=== PATIENT | male | born 1980 | race Caucasian/White ===

== ENCOUNTER 2017-01-04 22:16 | Emergency (ER) | payer OTHER ==
[~2017-01-04] VITALS: Ht 175.3 cm; Wt 76.3 kg
[~2017-01-04 22:16] MED LIST: ADVIL200 M1 PO; AMOXICILLIN500 MG PO; CLINDAMYCIN HC300 MG PO; DOXYCYCLINE HY100 M3 PO; FLEXERIL10 MG; FLEXERIL5 MG PO; INDOCIN25 MG PO; MOBIC15 MG PO; MOTRIN600 MG; MOTRIN600 MG PO; MOTRIN800 MG PO; NAPROSYN500 MG PO; NAPROXEN500 MG PO; NO HOME MEDS; NO HOME MEDS.; NOHOMEMEDS; NORCO 5/3251 TABLET PO; PEN-VEE K,VEET500 MG PO; TRAMADOL HCL50 MG PO; VALIUM5 MG PO
[2017-01-04] MEDS ORDERED: ROBITUSSIN AC,T10 ML PO (23:27)
[2017-01-04] MEDS ORDERED: NICODERM CQ1 EACH TD (23:28)
[2017-01-04 23:39] VITALS: BP 128/60
== END 2017-01-04 23:39 | disposition home or self-care (01) ==
LOC: EME 22:16 → EXP 22:16
DX: J06.9 Acute upper respiratory infection, unspecified (principal); F17.200 Nicotine dependence, unspecified, uncomplicated; Z71.6 Tobacco abuse counseling
CPT/HCPCS: 99281; 99284

== ENCOUNTER 2017-01-13 17:46 | Emergency (ER) | payer OTHER ==
[~2017-01-13] VITALS: Ht 175.3 cm; Wt 75.7 kg
[~2017-01-13 17:46] MED LIST changes: +NICODERM CQ1 EACH TD; +ROBITUSSIN AC,T10 ML PO
[2017-01-13] MEDS ORDERED: NORCO 5/3251 TABLET PO (19:41)
[2017-01-13] MEDS ORDERED: MOBIC15 MG PO (19:41)
[2017-01-13 20:25] VITALS: BP 141/59
== END 2017-01-13 20:26 | disposition home or self-care (01) ==
LOC: EXP 17:46 → EME 17:46 → EXP 20:26
DX: S90.31XA Contusion of right foot, initial encounter (principal); W22.8XXA Striking against or struck by other objects, initial encounter; Y92.69 Other specified industrial and construction area as the place of occurrence of the external cause; Y99.0 Civilian activity done for income or pay; Z72.0 Tobacco use
CPT/HCPCS: 73630; 99281; 99283

== ENCOUNTER 2017-04-19 22:51 | Emergency (ER) | payer OTHER ==
[~2017-04-19] VITALS: Ht 175.3 cm; Wt 73.3 kg
[2017-04-20] MEDS ORDERED: ROBITUSSIN AC,T10 ML PO (00:52)
[2017-04-20] MEDS ORDERED: MEDROL DOSEPAK4 MG PO (00:52)
[2017-04-20 00:59] VITALS: BP 117/64
== END 2017-04-20 01:00 | disposition home or self-care (01) ==
LOC: EME 22:51
DX: J06.9 Acute upper respiratory infection, unspecified (principal); F17.200 Nicotine dependence, unspecified, uncomplicated
CPT/HCPCS: 99281; 99284

== ENCOUNTER 2017-08-02 17:21 | Emergency (ER) | payer OTHER ==
[~2017-08-02] VITALS: Ht 175.3 cm; Wt 79.7 kg
[~2017-08-02 17:21] MED LIST changes: +MEDROL DOSEPAK4 MG PO
[2017-08-02] MEDS ORDERED: NORCO 5/3251 TABLET PO (19:37)
[2017-08-02] MEDS ORDERED: AMOXICILLIN500 MG PO (19:37)
[2017-08-02] MEDS ORDERED: FLEXERIL10 MG PO (19:37)
[2017-08-02 19:53] VITALS: BP 130/62
== END 2017-08-02 19:54 | disposition home or self-care (01) ==
LOC: EME 17:21
DX: K04.7 Periapical abscess without sinus (principal); S39.012A Strain of muscle, fascia and tendon of lower back, initial encounter; X50.0XXA Overexertion from strenuous movement or load, initial encounter; Y93.89 Activity, other specified; F17.200 Nicotine dependence, unspecified, uncomplicated
CPT/HCPCS: 99281; 99284

== ENCOUNTER 2017-10-18 19:01 | Emergency (ER) | payer OTHER ==
[~2017-10-18] VITALS: Ht 175.3 cm; Wt 75.6 kg
[~2017-10-18 19:01] MED LIST changes: +FLEXERIL10 MG PO
[2017-10-18] MEDS ORDERED: TESSALON PERLE100 MG PO (20:23)
[2017-10-18] MEDS ORDERED: PREDNISONE20 MG PO (20:23)
[2017-10-18] MEDS ORDERED: VENTOLIN HFA18 GM IH (20:23)
[2017-10-18 20:52] VITALS: BP 116/63
== END 2017-10-18 20:53 | disposition home or self-care (01) ==
LOC: EME 19:01
DX: J06.9 Acute upper respiratory infection, unspecified (principal); F17.200 Nicotine dependence, unspecified, uncomplicated
CPT/HCPCS: 71046; 99281; 99283; J7512

== ENCOUNTER 2018-01-28 16:01 | Emergency (ER) | payer OTHER ==
[~2018-01-28] VITALS: Ht 175.3 cm; Wt 80.0 kg
[~2018-01-28 16:01] MED LIST changes: +PREDNISONE20 MG PO; +TESSALON PERLE100 MG PO; +VENTOLIN HFA18 GM IH
[2018-01-28 17:29] LABS: HEMATOCRIT 44.5 % (38.0-50.0); HEMOGLOBIN 14.9 G/DL (12.5-16.6); MCH 28.8 PG (29.0-34.0); MCHC 33.5 G/DL (30.0-36.0); MCV 85.9 FL (86-99); PLATELET COUNT 245 K/uL (156-360); RBC DIS.WIDTH-CV 12.8 % (11.8-14.6); RBC DIS.WIDTH-SD 40.1 % (39-53); RED BLOOD COUNT 5.18 M/uL (4.00-5.50); WHITE BLOOD COUNT 10.3 K/uL (4.1-10.2)
[2018-01-28 17:36] LABS: ALBUMIN 4.6 g/dL (3.2-4.8); CHLORIDE 103 mEq/L (99-109); POTASSIUM 3.9 mEq/L (3.7-5.4); SODIUM 136 mEq/L (136-147)
[2018-01-28 17:39] LABS: GLUCOSE 105 mg/dL (70-99); TOTAL PROTEIN 6.6 g/dL (6.4-8.3)
[2018-01-28 17:40] LABS: TOTAL BILIRUBIN 0.5 mg/dL (0.0-1.0)
[2018-01-28 17:42] LABS: ALKALINE PHOSPHATASE 94 IU/L (3-129); GFR ESTIMATE (CALCULATED) > 59 mL/min/ (58.99-99999)
[2018-01-28 17:43] LABS: UREA NITROGEN (BUN) 13 mg/dL (9-23)
[2018-01-28 17:44] LABS: AST (GOT) 13 IU/L (2-34)
[2018-01-28 17:45] LABS: ALT (GPT) 15 IU/L (3-49)
[2018-01-28 18:18] LABS: APPEARANCE CLOUDY ((CLEAR)); BILIRUBIN NEGATIVE; BLOOD LARGE; COLOR YELLOW ((YELLOW)); GLUCOSE (STRIP) NEGATIVE; KETONES NEGATIVE; LEUKOCYTES NEGATIVE; NITRITE NEGATIVE; PROTEIN (STRIP) 30; SPECIFIC GRAVITY 1.023 (1.000-1.030); UROBILINOGEN 0.2 MG/DL (0.2-1.0)
[2018-01-28 18:27] LABS: BACTERIA NONE SEEN /HPF; EPITHELIAL CELLS NONE SEEN /HPF; MUCUS 2+ /LPF; RED BLOOD CELLS TNTC /HPF (0-5); UCUL ADDED? YES; WHITE BLOOD CELLS 0-5 /HPF (0-5)
[2018-01-28] MEDS ORDERED: NORCO 5/3251 TABLET PO (19:53)
[2018-01-28 20:32] VITALS: BP 99/54
== END 2018-01-28 20:33 | disposition home or self-care (01) ==
LOC: EME 16:01
PROVIDERS: Emergency Medicine Emergency Medical Services
DX: N20.0 Calculus of kidney (principal); R10.32 Left lower quadrant pain; F17.200 Nicotine dependence, unspecified, uncomplicated
CPT/HCPCS: 74176; 80053; 81003; 85027; 87086; 99281; 99285; J2270